=== PATIENT | female | born 1995 | race Caucasian/White ===

== ENCOUNTER → 2016-08-15 | Outpatient (CLI) | payer BC ==
--- NOTE | 2016-08-15 09:57 | USB ---
Reason for exam: clinical finding. History: Family history of breast cancer in paternal grandmother at age 60. Took hormonal contraceptives for 3 years. Indicated problem(s): lump or thickening in the right breast. Physical Findings: Nurse Summary: right breast more prominant nodularity upper outer quadrant, all soft, movable bilateral breast (nurse ts). US Breast RT Right breast ultrasound including all four quadrants, the retroareolar region and axilla demonstrates no cystic or solid lesion seen. Additional imaging upper outer quadrant where patient feels lump. These results were verbally communicated with the patient and result sheet given to the patient on 08/15/16. ASSESSMENT: Negative, BI-RAD 1 RECOMMENDATION: Clinical management of the right breast. Manage patient on a clinical basis.
== END | disposition home or self-care (01) ==
LOC: RADUSWWP 08:59
PROVIDERS: ATTEND Obstetrics & Gynecology
DX: N63 Unspecified lump in breast (principal)